=== PATIENT | male | born 1960 | race Hispanic/Latino ===

== ENCOUNTER 2021-08-17 16:01 | Emergency (ER) | payer SELFPAY ==
--- NOTE | 2021-08-17 16:08 | Emergency Department Report ---
History of Present Illness - General Stated Complaint: OVERDOSE Time Seen by Provider: 08/17/21 16:04 Source: patient, EMS - History of Present Illness Initial Comments: Patient is 60 years old male with previous history of drug overdose. Patient brought to the emergency room via EMS from a local motel. Patient called 911 and stated that he is unresponsive. EMS reported that when they arrived to the patient room patient was unresponsive and breathing 10 times a minute. EMS reported that patient received Narcan and immediately start working up. Upon arrival to the ER patient is jittery and is having nausea. He is disoriented in place time and person. EMS reported that they found a bottle of Xanax and other bottle that is not labeled. MD Complaint: intentional overdose -: This morning Intent: unwilling to say How Overdose Was Discovered: family/friend present Treatments Prior to Arrival: oxygen, narcan, IV fluids - Related Data Allergies Allergy/AdvReac Type Severity Reaction Status Date / Time No Known Allergies Allergy Unverified 08/17/21 16:54 ED Review of Systems ROS: Stated complaint: OVERDOSE Other details as noted in HPI Comment: Unobtainable due to pts medical conditions ED Physical Exam - General General appearance: alert, anxious - Head Head exam: Present: atraumatic, normocephalic, normal inspection - Eye Eye exam: Present: normal appearance - ENT ENT exam: Present: normal exam, normal orophraynx, mucous membranes moist - Neck Neck exam: Present: normal inspection, full ROM. Absent: tenderness, meningismus - Respiratory Respiratory exam: Present: normal lung sounds bilaterally - Cardiovascular Cardiovascular Exam: Present: regular rate, normal rhythm, normal heart sounds - GI/Abdominal GI/Abdominal exam: Present: soft, normal bowel sounds. Absent: distended, tenderness, guarding, rebound, rigid, organomegaly, mass, bruit, pulsatile mass, hernia - Extremities Exam Extremities exam: Present: normal inspection, full ROM, normal capillary refill. Absent: tenderness, pedal edema, joint swelling, calf tenderness - Back Exam Back exam: Present: normal inspection, full ROM. Absent: CVA tenderness (R), CVA tenderness (L) - Neurological Exam Neurological exam: Present: alert, oriented X3, CN II-XII intact, normal gait, reflexes normal. Absent: motor sensory deficit - Psychiatric Psychiatric exam: Present: anxious - Skin Skin exam: Present: warm, intact, normal color ED Course - Reevaluation(s) Reevaluation #1: 08/17/21 16:58 Patient now is alert, oriented x3 in no acute distress. Patient at bedside. She stated that he took for 5 Percocet for his pain. Patient and his refused a CT brain. They agreed to get a liter of fluids. Patient is able to make sound decision. He and his refused observation and stated that he needed to go to work. I thoroughly informed him this is very dangerous given that he is awake only because he just got Narcan. ED Medical Decision Making - Lab Data Result diagrams: 08/17/21 16:15 08/17/21 16:15 - Medical Decision Making Patient is 60 years old male with previous history of drug overdose. Patient brought to the emergency room via EMS from a local motel. Patient called 911 and stated that he is unresponsive. EMS reported that when they arrived to the patient room patient was unresponsive and breathing 10 times a minute. EMS reported that patient received Narcan and immediately start working up. Upon arrival to the ER patient is jittery and is having nausea. He is disoriented in place time and person. EMS reported that they found a bottle of Xanax and other bottle that is not labeled. Patient arrived at bedside and stated that he took approximately 4 TO 5 tablets of Percocet. She stated that this is happened again. Patient is now alert, oriented x3 and in no acute distress however his blood pressure like 73/52. Patient is able to make sound decision. Patient denied any suicidal or homicidal ideation. No visual or auditory hallucination. He stated that he does not want to stay. I informed him and his that his condition is very serious and there is a possibility of not him able to breathe and this can lead to . I informed him that he is awake because of the Narcan and the Narcan usually take 2hours and it we are of and he will go to his initial presentation. Patient still wanted to sign out AMA. He stated that he have to go to drop. also insisted that he needed to leave. I strongly advised patient to go to another ER or come back if symptoms get worse. Patient signed AGAINST MEDICAL ADVICE. Critical Care Time: Yes Critical care time in (mins) excluding proc time.: 35 Critical care attestation.: If time is entered above; I have spent that time in minutes in the direct care of this critically ill patient, excluding procedure time. ED Disposition Clinical Impression: Accidental drug overdose Disposition: 07 LEFT AGAINST MEDICAL ADVICE Is pt being admited?: No Condition: Stable Instructions: Accidental Drug Poisoning, Adult, Opioid Overdose
[2021-08-17 16:57] LABS: Alanine Aminotransferase 61 units/L (7-56); BUN/Creatinine Ratio 11; Blood Urea Nitrogen 17 mg/dL (9-20); Calcium 9.2 mg/dL (8.4-10.2); Hemolysis Index 9
[2021-08-17 16:58] LABS: Bilirubin,Direct < 0.2 mg/dL (0-0.2)
[2021-08-17 17:03] LABS: Hematocrit 48.2 % (35.5-45.6); Hemoglobin 15.8 gm/dl (11.8-15.2); Mean Corpuscular HGB Conc 33 % (32-34); Mean Corpuscular Volume 94 fl (84-94); Platelet Count 224 K/mm3 (140-440); Red Blood Count 5.14 M/mm3 (3.65-5.03); Red Cell Distribution Width 12.9 % (13.2-15.2)
[2021-08-17 17:17] VITALS: BP 73/54
[2021-08-17 17:56] LABS: Band Neutrophils # (Manual) 0.6 K/mm3; Basophils % (Manual) 0 % (0.0-1.8); Eosinophils % (Manual) 0 % (0.0-4.3); Total Cells Counted 100
[2021-08-17 17:57] LABS: Platelet Estimate Consistent w Auto; RBC Morphology Normal
[2021-08-17] MEDS ORDERED: SODIUM CHLORIDE 0.9% 1000 ML 1,000 ML IV ONE (18:00)
[2021-08-17] MEDS ORDERED: ONDANSETRON 4 MG/2 ML INJ IV ONE (18:00)
== END 2021-08-17 17:17 | disposition left against medical advice (07) ==
LOC: ED 16:01
DX: T65.91XA Toxic effect of unspecified substance, accidental (unintentional), initial encounter (principal); Y92.89 Other specified places as the place of occurrence of the external cause
CPT/HCPCS: 36415; 80048; 80076; 80320; 85007; 85025; 99283; G0480